=== PATIENT | female | born 1980 | race Caucasian/White ===

== ENCOUNTER 2016-11-14 23:03 | Emergency (ER) | payer BC ==
[~2016-11-14] VITALS: Ht 154.9 cm; Wt 82.6 kg
[2016-11-14] MEDS ORDERED: ONDANSETRON HCL/PF 4 MG/2 ML VIAL ONE (23:28)
[2016-11-14] MEDS ORDERED: IV NS 0.9% 1,000 ML ONE (23:29)
[2016-11-14] MEDS ORDERED: IV SET PRIMARY 1 EA INFUS.SET MC ONE (23:29)
[2016-11-14] MEDS ORDERED: ONDANSETRON HCL/PF 4 MG/2 ML VIAL IVP ONE (23:30)
[2016-11-14] MEDS ORDERED: IV NS 0.9% 1,000 ML BAG IV ONE (23:30)
[2016-11-14 23:36] LABS: BASOPHILS % (AUTO) 0.3 % (0.0-2.0); DIFF TOTAL % 100 %; EOSINOPHILS % (AUTO) 0.3 % (0.0-6.0); HEMATOCRIT 36 % (33-45); HEMOGLOBIN 12.1 g/dL (11.5-14.8); LYMPHOCYTES % (AUTO) 11.7 % (20.0-44.0); MEAN CORPUSCULAR HEMOGLOBIN 27 PG (26.0-33.0); MEAN CORPUSCULAR HGB CONC 34 g/dl (31.0-36.0); MEAN CORPUSCULAR VOLUME 81 fL (82-100); MONOCYTES # (AUTO) 0.6 /CMM (0.1-1.30); MONOCYTES % (AUTO) 6.6 % (2.0-12.0); NEUTROPHILS # (AUTO) 7.2 /CMM (1.8-8.9); NEUTROPHILS % (AUTO) 81.1 % (43.0-81.0); PLATELET COUNT (AUTO) 308 /CMM (150-450); RED BLOOD CELL COUNT(AUTO) 4.45 MIL/uL (4.0-5.2); WHITE BLOOD COUNT (AUTO) 8.9 K/uL (4.3-11.0)
[2016-11-14 23:54] LABS: ALBUMIN 3.4 g/dL (3.4-5.0); BILIRUBIN,DIRECT 0.1 mg/dL (0.0-0.2); BILIRUBIN,TOTAL 0.3 mg/dL (0.2-1.0); CREATININE 0.7 mg/dL (0.6-1.3); INDIRECT BILIRUBIN 0.2 mg/dL (0.0-1.1); POTASSIUM 3.6 mmol/L (3.5-5.1); TOTAL PROTEIN, SERUM 7.3 g/dL (6.4-8.2)
[2016-11-14 23:57] LABS: LACTIC ACID 1.9 mmol/L (0.4-2.0)
[2016-11-15] MEDS ORDERED: ONDANSETRON 4 MG TAB.RAPDIS ONE (01:00)
[2016-11-15 01:11] VITALS: BP 110/67
[2016-11-15] MEDS ORDERED: ONDANSETRON 4 MG TAB.RAPDIS PO ONE (01:30)
== END 2016-11-15 01:12 | disposition home or self-care (01) ==
LOC: ER 23:05
DX: E86.0 Dehydration (principal); R11.10 Vomiting, unspecified; R19.7 Diarrhea, unspecified
CPT/HCPCS: 36415; 80048-TC; 80076-TC; 83605-TC; 83690-TC; 84702-TC; 85025-TC; A4606; J2405; J7030; Q0162; Z7610